=== PATIENT | male | born 1985 | race Caucasian/White ===

== ENCOUNTER 2018-06-03 04:12 | Emergency (ER) | payer OTHER ==
[2018-06-03 05:22] VITALS: BP 109/62; PULSE 76; TEMP 97.8; BMI 24.0
--- NOTE | 2018-06-03 06:02 | PDOC ---
Attending Attestation - Resident Resident Name: Ming Jama - ED Attending Attestation I have performed the following: I have examined & evaluated the patient, The case was reviewed & discussed with the resident, I agree w/resident's findings & plan - HPI HPI: 06/03/18 06:10 32-year-old male with decreased hearing to the right ear. - Physicial Exam PE: 06/03/18 06:11 Agree with resident's exam - Medical Decision Making 06/03/18 06:11 32-year-old male with cerumen impaction Ear flushed in the emergency department with removal of a large wax bolus
--- NOTE | 2018-06-03 06:14 | PDOC ---
History of Present Illness - General Chief Complaint: Ear Problem Stated Complaint: EARACHE/HEARING PROBLEM Time Seen by Provider: 06/03/18 05:41 History Source: Patient Exam Limitations: No Limitations - History of Present Illness Initial Comments: 06/03/18 06:14 The patient is a 32M with no PMH who presents to the ER with complaints of decreased hearing loss. The patient states that for the past 2 days, his hearing has worsened. He denies recent illness, vertiginous symptoms, and pain. He denies h/a, fever, chills, nausea, vomiting, CP, SOB. He denies any trauma, diving, or use of cotton swabs. Past History - Past Medical History Allergies/Adverse Reactions: Allergies Allergy/AdvReac Type Severity Reaction Status Date / Time No Known Allergies Allergy Verified 06/03/18 05:22 Home Medications: Ambulatory Orders Cyclobenzaprine HCl [Flexeril] 10 mg PO TID PRN #20 tablet 02/02/12 Ibuprofen [Motrin] 800 mg PO TID #20 tablet 02/02/12 No Home Medications 0 dose .ROUTE UTDICT 02/02/12 Pantoprazole Sodium [Protonix -] 40 mg PO DAILY #7 tablet.ec 03/09/15 Ranitidine HCl [Zantac] 150 mg PO DAILY #20 tablet 03/09/15 - Suicide/Smoking/Psychosocial Hx Smoking Status: Yes Smoking History: Current every day smoker Have you smoked in the past 12 months: No Number of Cigarettes Smoked Daily: 4 Information on smoking cessation initiated: No Hx Alcohol Use: Yes Drug/Substance Use Hx: No Substance Use Type: Alcohol Review of Systems - Review of Systems Able to Perform ROS?: Yes Is the patient limited Kiswahili proficient: No Constitutional: No: Chills, Fever HEENTM: Yes: Other (R ear decreased hearing). No: Blurred Vision, Nose Pain, Tinnitus, Throat Pain Respiratory: No: Cough, Shortness of Breath Cardiac (ROS): No: Chest Pain ABD/GI: No: Nausea, Vomiting Neurological: No: Headache, Numbness, Tingling *Physical Exam - Vital Signs Last Vital Signs Temp Pulse Resp BP Pulse Ox 97.8 F 76 20 109/62 98 06/03/18 04:12 06/03/18 04:12 06/03/18 04:12 06/03/18 04:12 06/03/18 04:12 - Physical Exam General Appearance: Yes: Nourished, Appropriately Dressed. No: Apparent Distress HEENT: positive: Normal Voice, Hearing Decreased (on R), Other (Cerumen impaction on R) Respiratory/Chest: positive: Lungs Clear, Normal Breath Sounds Cardiovascular: positive: Regular Rhythm, Regular Rate Moderate Sedation - Procedure Monitoring Vital Signs: Procedure Monitoring Vital Signs Temperature 97.8 F 06/03/18 04:12 Pulse Rate 76 06/03/18 04:12 Respiratory Rate 20 06/03/18 04:12 Blood Pressure 109/62 06/03/18 04:12 O2 Sat by Pulse Oximetry (%) 98 06/03/18 04:12 Procedures - Additional Procedures Additional Procedures: other (cerumen removal) Medical Decision Making - Medical Decision Making 06/03/18 06:20 The patient is a 32M with no PMH who presents to the ER with complaints of decreased hearing and is found to have impacted cerumen in his R ear. Cerumen removed with resolution of sx. TM's clear. Will d/c with PCP f/u. *DC/Admit/Observation/Transfer Diagnosis at time of Disposition: Cerumen impaction Qualifiers: Laterality: right Qualified Code(s): H61.21 - Impacted cerumen, right ear - Discharge Dispostion Disposition: HOME Condition at time of disposition: Stable Decision to Admit order: No - Referrals Referrals: Jai Mcneil MD [Primary Care Provider] - - Patient Instructions Printed Discharge Instructions: DI for Cerumen Impaction Additional Instructions: Please follow up with your primary care physician in 2-3 days. Please return to the ER if you have any signs or symptoms of chest pain, shortness of breath, uncontrollable fever, chills, nausea, vomiting, numbness, tingling, or weakness in any part of your body, changes in vision, or slurred speech. Please return to the ER if symptoms persist, worsen, or new symptoms arise. - Post Discharge Activity
== END 2018-06-03 06:44 | disposition home or self-care (01) ==
LOC: JER 04:12
PROC: 3E1B78Z Irrigation of Ear using Irrigating Substance, Via Natural or Artificial Opening (ICD-10-PCS; principal; 2018-06-03)
DX: H61.21 Impacted cerumen, right ear (principal)
CPT/HCPCS: 99281-25